=== PATIENT | female | born 1985 | race Caucasian/White ===

== ENCOUNTER 2018-05-12 06:37 | Inpatient (IN) | payer OTHER ==
[2018-05-12 06:52] VITALS: BMI 26.6
--- NOTE | 2018-05-12 07:32 | PDOC ---
Attending Attestation - HPI HPI: The patient is a 32 year old Hungarian-speaking female with PMHx of 6 weeks 3 days intrauterine as [facility] Patient states that she was seen on Sunday at [facility] for vaginal bleeding. The US results show that a single intrauterine gestation with estimated age of 6 weeks and 1 day without evidence of cardiac activity. She notes that she began experiencing cramping today and was passing a significant amount of large blood clots. OBGyn: Katyt Velez 05/12/18 09:50 - Physicial Exam PE: GENERAL: Awake, alert, and fully oriented, in no acute distress. HEAD: No signs of trauma EYES: PERRLA, EOMI, sclera anicteric, conjunctiva clear ENT: Auricles normal inspection, hearing grossly normal, nares patent, oropharynx clear without exudates. Moist mucosa NECK: Normal ROM, supple, no lymphadenopathy, JVD, or masses LUNGS: Breath sounds equal, clear to auscultation bilaterally. No wheezes, and no crackles HEART: Regular rate and rhythm, normal S1 and S2, no murmurs, rubs or gallops ABDOMEN: Soft, nontender, normoactive bowel sounds. No guarding, no rebound. No masses EXTREMITIES: Normal range of motion, no edema. No clubbing or cyanosis. No cords, erythema, or tenderness NEUROLOGICAL: Cranial nerves II through XII grossly intact. Normal speech, normal gait SKIN: Warm, Dry, normal turgor, no rashes or lesions noted. 05/12/18 09:54 <Mami Colindres - Last Filed: 05/12/18 09:50> - Resident Resident Name: Robson Valentin - Physicial Exam PE: 05/16/18 19:14 pelvic exam: open os, passing large clots as per resident exam. - Medical Decision Making 05/16/18 19:15 Pt presents to the ED complaining of heavy vaginal bleeding. Had US at outside institution two days ago that showed IUP with no heart beat. Open os on exam here today. Case discussed with Dr. Hennessy, who has come to the ED to evaluate the patient and feels that she has an incomplete and should go to the OR for D and C. <Araseli Donaldson - Last Filed: 05/16/18 19:17>
--- NOTE | 2018-05-12 08:09 | PDOC ---
History of Present Illness <Araseli Donaldson - Last Filed: 05/12/18 11:32> - General History Source: Patient, Spouse Exam Limitations: Language Barrier (Pt primarily Bangladeshi speaking. is fluent in Cypriot and translated for pt during encounter.) - History of Present Illness Initial Comments: 05/12/18 07:52 32 y/o primigravida female at estimated 6 wks 3 days gestation by transvaginal u /s (obtained 10 May 2018) presenting to [facility] ED complaining of vaginal bleeding and cramping since Sunday. The bleeding and cramping have become worse in the past 24hrs. Pt estimates approx. 3-4 pads worth of blood. Painful cramping occurring in LL and RL abdomen with radiation to the back. The pt was evaluated for similar symptoms on Sunday (10 May 2018) at [facility] ED, where an IUP was visualized on u/s. Pt was discharged home with [facility] follow up scheduled for Sunday (13 May 2018) with Katty Velez CNM. Pt's works [employer] and was not present for ED visit on Sunday. No systemic symptoms on ROS. No history of STDs. No familial history of bleeding disorders or spontaneous abortions. Last vaginal intercourse was last Sunday. <Robson Valentin - Last Filed: 05/12/18 14:31> - General Chief Complaint: Vaginal Bleeding Stated Complaint: VAG BLEED 2 MONTHS Time Seen by Provider: 05/12/18 07:30 Past History <Araseli Donaldson - Last Filed: 05/12/18 11:32> - Past Medical History COPD: No - Reproductive History Is Patient Now?: Yes (#): 1 Para: 0 - Immunization History Immunization Up to Date: Yes - Suicide/Smoking/Psychosocial Hx Smoking History: Never smoked Have you smoked in the past 12 months: No Information on smoking cessation initiated: No Hx Alcohol Use: No Drug/Substance Use Hx: No <Robson Valentin - Last Filed: 05/12/18 14:31> - Past Medical History Allergies/Adverse Reactions: Allergies Allergy/AdvReac Type Severity Reaction Status Date / Time No Known Allergies Allergy Verified 05/12/18 06:48 Home Medications: Ambulatory Orders NK [No Known Home Medication] 05/12/18 Review of Systems - Review of Systems Is the patient limited Cypriot proficient: Yes Constitutional: No: Chills, Diaphoresis, Fever, Malaise, Weakness HEENTM: No: Blurred Vision, Recent change in vision, Double Vision Respiratory: No: Shortness of Breath Cardiac (ROS): No: Chest Pain, Lightheadedness, Palpitations, Syncope, Chest Tightness ABD/GI: Yes: Abdominal cramping. No: Constipated, Diarrhea, Vomiting : Yes: Other (Vagianal Bleeding). No: Burning, Dysuria Musculoskeletal: No: Muscle Pain, Muscle Weakness Neurological: No: Headache, Weakness, Unsteady Gait Hematologic/Lymphatic: Yes: See HPI <Robson Valentin - Last Filed: 05/12/18 14:31> *Physical Exam - Vital Signs Last Vital Signs Temp Pulse Resp BP Pulse Ox 97.5 F L 72 20 111/69 100 05/12/18 06:49 05/12/18 10:28 05/12/18 06:49 05/12/18 10:28 05/12/18 06:49 <Araseli Donaldson - Last Filed: 05/12/18 11:32> - Vital Signs Last Vital Signs Temp Pulse Resp BP Pulse Ox 97.5 F L 82 20 111/66 100 05/12/18 06:49 05/12/18 06:49 05/12/18 06:49 05/12/18 06:49 05/12/18 06:49 - Physical Exam Comments: 05/12/18 08:42 Adult female in no acute distress. Average body habitus. Answered all questions appropriately and with complete thought. Dressed appropriately. HEENT: positive: Normal Voice Respiratory/Chest: positive: Lungs Clear, Normal Breath Sounds. negative: Chest Tender, Respiratory Distress, Accessory Muscle Use Cardiovascular: positive: Regular Rhythm, Regular Rate, S1, S2. negative: Murmur, Diastolic Murmur, Systolic Murmur, Gallop/S3, Gallop/S4 Female Pelvic Exam: positive: vaginal bleeding, other (Bleeding and clotted material noted in OS. OS found to be open on bimanual exam.). negative: cervical os closed Extremity: positive: Normal Capillary Refill, Normal Inspection, Normal Range of Motion. negative: Tender, Pedal Edema, Swelling, Calf Tenderness <Robson Valentin - Last Filed: 05/12/18 14:31> ED Treatment Course - LABORATORY CBC & Chemistry Diagram: 05/12/18 08:36 - ADDITIONAL ORDERS Additional order review: Laboratory Results 05/12/18 05/12/18 05/12/18 08:43 08:43 08:36 Beta HCG, Quant 2890.6 Urine Color Yellow Urine Appearance Slcloudy Urine pH 5.0 Ur Specific [place] 1.027 Urine Protein 1+ H Urine Glucose (UA) Negative Urine Ketones Negative Urine Blood 3+ H Urine Nitrite Negative Urine Bilirubin Negative Urine Urobilinogen Negative Ur Leukocyte Esterase Trace Urine WBC (Auto) 100 Urine RBC (Auto) 90 Ur Epithelial Cells Many Urine Bacteria Many Urine Mucus Many Blood Type A POSITIVE Antibody Screen Negative 05/12/18 08:36 RBC 4.28 MCV 88.1 MCHC 34.4 RDW 12.9 MPV 8.3 Neutrophils % 75.9 Lymphocytes % 18.3 Monocytes % 4.9 Eosinophils % 0.5 Basophils % 0.4 - Medications Given in the ED: ED Medications Discontinued Medications Generic Name Dose Route Start Last Admin Trade Name Jerrell PRN Reason Stop Dose Admin Acetaminophen 650 mg 05/12/18 08:35 05/12/18 09:35 Tylenol Oral Solution - PO 05/12/18 08:36 Not Given ONCE ONE Acetaminophen 650 mg 05/12/18 08:40 05/12/18 08:40 Tylenol - PO 05/12/18 08:41 650 mg ONCE ONE Administration <Araseli Donaldson - Last Filed: 05/12/18 11:32> - LABORATORY CBC & Chemistry Diagram: 05/12/18 08:36 <Robson Valentin - Last Filed: 05/12/18 14:31> Medical Decision Making - Medical Decision Making 05/12/18 08:45 32 year old primigravida female at 6w3d gestation by u/s presents with vaginal bleeding and lower abdominal cramping since last Sunday, worse in the past 24hrs. Vitals unremarkable for tachycardia or hypotension. Bleeding noted on speculum exam with open os noted on bimanual. Low suspicion for ectopic given U/ S two days ago suggestive for IUP. Differential to include spontaneous or threatened . Physiologic bleeding of considered but unlikely given open OS. Will obtain CBC, type and screen, UA, and repeat transvaginal U/S. 05/12/18 09:16 CBC unremarkable for signs of anemia. UA positive for blood and protein likely secondary to vaginal bleeding; not suggestive for infection. 05/12/18 10:05 No pole appreciated on U/S; findings suggestive for spontaneous . Rh+ so RhoGam not indicated. Concern remains for continued heavy bleeding given open OS. 05/12/18 10:07 Called to bedside. Pt continues to bleed heavily and passed a large 5-8cm 05/12/18 11:54 Dr. Hennessy of [facility] service evaluated pt and admitted to her service for urgent OR procedure. <Robson Valentin - Last Filed: 05/12/18 14:31> *DC/Admit/Observation/Transfer - Discharge Dispostion Decision to Admit order: Yes <Araseli Donaldson - Last Filed: 05/12/18 11:32> <Robson Valentin - Last Filed: 05/12/18 14:31> Diagnosis at time of Disposition: Incomplete with delayed or excessive hemorrhage - Discharge Dispostion Condition at time of disposition: Good
[2018-05-12] MEDS ORDERED: ACETAMINOPHEN 650 MG/20.3 ML ORAL SOLUTION (CUPS) PO ONE (08:35)
[2018-05-12] MEDS ORDERED: ACETAMINOPHEN 325 MG TABLET (FP) ONE (08:36)
[2018-05-12] MEDS ORDERED: ACETAMINOPHEN 325 MG TABLET (FP) PO ONE (08:40)
[2018-05-12 08:43] LABS: BASO % 0.4 % (0-2.0); EOS % 0.5 % (0-4.5); HEMATOCRIT 37.7 % (32.4-45.2); LYMPH % 18.3 % (8-40); MCH 30.3 pg (25.7-33.7); MCHC 34.4 g/dl (32.0-36.0); MEAN CELL VOLUME 88.1 fl (80-96); MEAN PLT VOLUME 8.3 fl (7.5-11.1); MONO % 4.9 % (3.8-10.2); NEUT % 75.9 % (42.8-82.8); PLATELET COUNT 241 K/MM3 (134-434); RBC 4.28 M/mm3 (3.60-5.2); RDW 12.9 % (11.6-15.6); WHITE BLOOD COUNT 11.5 K/mm3 (4.0-10.0)
[2018-05-12 08:56] LABS: URINE APPEARANCE SLCLOUDY; URINE BILIRUBIN NEGATIVE (<2.0 mg/dL); URINE COLOR YELLOW; URINE GLUCOSE (UA) NEGATIVE (NEGATIVE); URINE KETONE NEGATIVE (NEGATIVE); URINE LEUK ESTERASE TRACE (NEGATIVE); URINE NITRITE NEGATIVE (NEGATIVE); URINE UROBILINOGEN NEGATIVE mg/dL (0.2-1.0)
[2018-05-12 08:57] LABS: URINE PROTEIN 1+ (NEGATIVE)
[2018-05-12 10:30] LABS: EPI CELLS MANY /HPF (FEW); URINE BACTERIA MANY /hpf (NONE SEEN); URINE MUCUS MANY
--- NOTE | 2018-05-12 11:24 | CON.OBG ---
Consult Consult Specialty:: SHIPFITTER Referred by:: Dr. Donaldson - History of Present Illness Chief Complaint: Vaginal bleeding History of Present Illness: 32 yo , LMP 03/14/18, presents to ER c/o pelvic pain associated with heavy vaginal bleeding. In ER she passed large clots. Sonogram failed to show any gestational sac as previously seen elsewhere. Patient was evaluated, there was significant bleeding and cervical os was opened. - History Source History Provided By: Family Member Limitations to Obtaining History: Language Barrier - Past Medical History ...LMP: 03/14/18 ...: Yes ...: 1 ...Para: 0 - Past Surgical History Past Surgical History: Yes: None - Alcohol/Substance Use Hx Alcohol Use: No - Smoking History Smoking history: Never smoked Have you smoked in the past 12 months: No - Social History Usual Living Arrangement: With Significant Other History of Recent Travel: No Home Medications - Allergies Allergies/Adverse Reactions: Allergies Allergy/AdvReac Type Severity Reaction Status Date / Time No Known Allergies Allergy Verified 05/12/18 06:48 - Home Medications Home Medications: Ambulatory Orders NK [No Known Home Medication] 05/12/18 Family Disease History - Family Disease History Family History: Unremarkable Review of Systems - Review of Systems Constitutional: reports: No Symptoms Eyes: reports: No Symptoms HENT: reports: No Symptoms Neck: reports: No Symptoms Cardiovascular: reports: No Symptoms Respiratory: reports: No Symptoms Gastrointestinal: reports: No Symptoms Genitourinary: reports: Pain, Vaginal Bleeding Musculoskeletal: reports: No Symptoms Integumentary: reports: No Symptoms Neurological: reports: No Symptoms Hematology/Lymphatic: reports: No Symptoms Psychiatric: reports: No Symptoms Pain Intensity: 4 Physical Exam-DIRECTOR CLINICAL APPLICATIONS Vital Signs: Vital Signs Temperature 97.5 F L 05/12/18 06:49 Pulse Rate 72 05/12/18 10:28 Respiratory Rate 20 05/12/18 06:49 Blood Pressure 111/69 05/12/18 10:28 O2 Sat by Pulse Oximetry (%) 100 05/12/18 06:49 Constitutional: Yes: No Distress Eyes: Yes: Conjunctiva Clear HENT: Yes: Atraumatic Neck: Yes: Supple Cardiovascular: Yes: Regular Rate and Rhythm Respiratory: Yes: Regular Gastrointestinal: Yes: Normal Bowel Sounds Vaginal Exam: Yes: Bleeding Cervix: Yes: Bleeding, Other (Open os) Uterus: Yes: Enlarged Neurological: Yes: Alert, Oriented Psychiatric: Yes: Alert, Oriented Labs: CBC, BMP 05/12/18 08:36 Problem List - Problems (1) Vaginal bleeding before 22 weeks gestation Code(s): O20.9 - HEMORRHAGE IN EARLY , UNSPECIFIED (2) Incomplete with delayed or excessive hemorrhage Code(s): O03.1 - DELAYED OR EXCESSIVE HEMOR FOLLOWING INCMPL SPON Assessment/Plan Incomplete with excessive hemorrhage Pre op for suction D&C Consent signed Anesthesia to see patient
[2018-05-12] MEDS ORDERED: ONDANSETRON 4 MG/2 ML VIAL IVPUSH ONE (11:35)
[2018-05-12] MEDS ORDERED: fentaNYL CITRATE 250 MCG/5 ML VIAL IVPUSH ONE (11:47)
[2018-05-12] MEDS ORDERED: ONDANSETRON 4 MG/2 ML VIAL ONE (11:50)
[2018-05-12] MEDS ORDERED: PROPOFOL 20 ML ONE ×2 (13:18)
[2018-05-12] MEDS ORDERED: ceFAZolin SODIUM 1 GM VIAL ONE (13:32)
[2018-05-12] MEDS ORDERED: ceFAZolin SODIUM 1 GM VIAL IVPB ONE (13:33)
[2018-05-12] MEDS ORDERED: KETOROLAC TROMETHAMINE 30 MG/1 ML VIAL ONE (13:38)
--- NOTE | 2018-05-12 13:50 | OP ---
Operative Note - Note: Operative Date: 05/12/18 Pre-Operative Diagnosis: Incomplete Operation: Suction D&C Findings: Large clots at the cervical os and vagina Post-Operative Diagnosis: Same as Pre-op Surgeon: Denise Hennessy Anesthesia: General Specimens Removed: Product of conception Estimated Blood Loss (mls): 100 Operative Report Dictated: Yes
[2018-05-12] MEDS ORDERED: PROMETHAZINE HCL 25 MG/1 ML VIAL IVPB PRN (14:01)
[2018-05-12] MEDS ORDERED: ACETAMINOPHEN 1000 MG/100 ML VIAL (NON FORMULARY) IVPB ONE (14:03)
[2018-05-12] MEDS ORDERED: LACTATED RINGERS SOLUTION 1,000 ML IV SCH (14:15)
[2018-05-12 14:28] LABS: HEMATOCRIT 27.9 % (32.4-45.2); HEMOGLOBIN 9.6 GM/dL (10.7-15.3); MCH 30.5 pg (25.7-33.7); MCHC 34.5 g/dl (32.0-36.0); MEAN CELL VOLUME 88.5 fl (80-96); MEAN PLT VOLUME 7.9 fl (7.5-11.1); PLATELET COUNT 211 K/MM3 (134-434); RBC 3.15 M/mm3 (3.60-5.2); RDW 12.7 % (11.6-15.6); WHITE BLOOD COUNT 12.6 K/mm3 (4.0-10.0)
[2018-05-12] MEDS ORDERED: ACETAMINOPHEN INJECTION 100 ML IVPB ONE (14:31)
--- NOTE | 2018-05-12 14:36 | OP ---
DATE OF OPERATION: 05/12/2018 PREOPERATIVE DIAGNOSIS: Incomplete . POSTOPERATIVE DIAGNOSIS: incomplete . PROCEDURE: Suction dilatation and curettage. SURGEON: Susie Hennessy MD ANESTHESIA: General. COMPLICATIONS: None. ESTIMATED BLOOD LOSS: 100 mL. PROCEDURE: The patient was taken to the operating room where general anesthesia was administered. The patient was then placed in lithotomy position. She was then prepped and draped in proper sterile fashion. A weighted speculum was placed in the vagina. The anterior lip of the cervix was grasped with a single-toothed tenaculum. Then the 10-mm suction curette was then gently introduced into the uterine cavity. The suction curette was then rotated to clear the uterus of all products of conception. A sharp curettage was then performed then the curette was then reintroduced to clear the uterus of all remaining products of conception. When finished instruments were removed and the patient was taken out of the lithotomy position. She was taken to PACU in stable condition. PATHOLOGY: Products of conception. DARRIN HENNESSY M.D. [id number]
[2018-05-12 18:22] VITALS: BP 108/54; PULSE 84; TEMP 98.9
--- NOTE | 2018-05-15 10:12 | PATH ---
Surgical Pathology Report Patient Name: LAYNE SILVER Med. Rec. #: [id number] /Age/Gender: 1985 (Age: 32) / F Account: [id number] Location: [facility] OBS/DIRECTOR OF SECURITIES AND REAL ESTATE Taken: 05/12/2018 Received: 05/13/2018 Reported: 05/15/2018 Physicians: Denise Hennessy M.D. Specimen(s) Received PRODUCTS OF CONCEPTION Clinical History Incomplete Final Diagnosis PRODUCTS OF CONCEPTION, DILATION AND CURETTAGE: IMMATURE CHORIONIC VILLI AND DECIDUA CONSISTENT WITH PRODUCTS OF CONCEPTION. Electronically Signed Alayna Peralta M.D. Gross Description Received in formalin, labeled "uterine contents," is a 10 x 10 x 2 cm. aggregate of cortez-red soft tissue fragments. Tissue suggestive of villous tissue is identified. No somatic tissue is identified. A pharmacy sales representative portion is submitted in one cassette. MLSZ/05/13/2018 santank/05/13/2018
== END 2018-05-12 18:20 | disposition home or self-care (01) | DRG 544 ==
LOC: JER 06:37 → JERBED 11:32 → UNDOADMIN 11:32 → JDEL 12:04 → J3W 15:50
PROVIDERS: ADMIT Obstetrics & Gynecology; ATTEND Obstetrics & Gynecology
PROC: 10D17ZZ Extraction of Products of Conception, Retained, Via Natural or Artificial Opening (ICD-10-PCS; principal; 2018-05-12 13:00)
DX: O03.1 Delayed or excessive hemorrhage following incomplete spontaneous abortion (principal)
CPT/HCPCS: 36415; 76801-TC; 81003; 81015; 84702; 85025; 85027; 86850; 86900; 86901; 88305-TC; 94760; 99283-25; J0131

== ENCOUNTER 2021-11-14 06:30 | Inpatient (IN) | payer OTHER ==
[2021-11-14] MEDS: ELECTROLYTE-148 SOLN 1,000 ML IV SCH (07:00)
[2021-11-14] MEDS ORDERED: CITRIC ACID/SODIUM CITRATE 30 ML UNIT-DOSE CUP PO ONE (07:49)
[2021-11-14] MEDS ORDERED: OXYTOCIN 20 UNITS in 0.9% NS 20 UNIT/1,000 ML INFUS.BAG IV ONE ×2 (08:05→11:10)
[2021-11-14] MEDS ORDERED: morphine SULFATE/PF 1 MG/2 ML (2cc Syringe - QUVA) ONE (08:06)
[2021-11-14] MEDS ORDERED: ePHEDrine SULFATE 50 MG/1 ML AMPULE ONE (08:06)
[2021-11-14] MEDS ORDERED: PHENYLEPHRINE HCL 10 MG/1 ML SINGLE DOSE VIAL ONE (08:08)
[2021-11-14] MEDS ORDERED: IBUPROFEN 800 MG/8 ML IJ IVPB PRN (08:15)
[2021-11-14] MEDS ORDERED: ceFAZolin SODIUM 1 GM VIAL ONE (08:25)
[2021-11-14] MEDS: OXYTOCIN 20 UNITS in 0.9% NS 20 UNIT/1,000 ML INFUS.BAG IV SCH (08:39)
[2021-11-14] MEDS ORDERED: ONDANSETRON 4 MG/2 ML VIAL ONE (08:40)
[2021-11-14] MEDS ORDERED: METHYLERGONOVINE MALEATE 0.2 MG/1 ML AMP IM ONE (09:07)
[2021-11-14 10:11] VITALS: BMI 34.3
[2021-11-14] MEDS ORDERED: ONDANSETRON 4 MG/2 ML VIAL IVPUSH PRN (11:38)
[2021-11-14] MEDS ORDERED: oxyCODONE HCL 5 MG TABLET PO PRN (20:15)
[2021-11-15] MEDS ORDERED: BISACODYL 10 MG SUPP.RECT RC PRN (08:15)
[2021-11-15 08:50] LABS: BASO % 0.5 % (0-2.0); EOS % 0.3 % (0-4.5); HEMATOCRIT 28.3 % (32.4-45.2); HEMOGLOBIN 9.8 GM/dL (10.7-15.3); LYMPH % 9.1 % (8-40); MCH 30.7 pg (25.7-33.7); MCHC 34.8 g/dl (32.0-36.0); MEAN CELL VOLUME 88.2 fl (80-96); MEAN PLT VOLUME 7.7 fl (7.5-11.1); NEUT % 83.1 % (42.8-82.8); PLATELET COUNT 248 10^3/uL (134-434); RDW 14.3 % (11.6-15.6); WHITE BLOOD COUNT 13.6 K/mm3 (4.0-10.0)
[2021-11-15] MEDS: IBUPROFEN 600 MG TABLET (FP) PO PRN (12:14)
[2021-11-15] MEDS: SIMETHICONE 80 MG TAB.CHEW (FP) PO PRN ×2 (12:14→19:42)
[2021-11-15] MEDS: ACETAMINOPHEN 325 MG TABLET (FP) PO PRN ×2 (14:49→20:46)
[2021-11-16] MEDS: ELECTROLYTE-148 SOLN 1,000 ML IV SCH (02:44)
[2021-11-16] MEDS: IBUPROFEN 600 MG TABLET (FP) PO PRN (02:47)
[2021-11-16] MEDS: OXYTOCIN 20 UNITS in 0.9% NS 20 UNIT/1,000 ML INFUS.BAG IV SCH (02:49)
[2021-11-16] MEDS: ACETAMINOPHEN 325 MG TABLET (FP) PO PRN (09:03)
[2021-11-16] MEDS: SIMETHICONE 80 MG TAB.CHEW (FP) PO PRN (09:03)
[2021-11-17 06:51] LABS: BASO % 0.4 % (0-2.0); EOS % 2.2 % (0-4.5); HEMATOCRIT 27.2 % (32.4-45.2); HEMOGLOBIN 9.4 GM/dL (10.7-15.3); LYMPH % 18.6 % (8-40); MCH 30.5 pg (25.7-33.7); MCHC 34.7 g/dl (32.0-36.0); MEAN CELL VOLUME 87.9 fl (80-96); MEAN PLT VOLUME 7.3 fl (7.5-11.1); MONO % 7.5 % (3.8-10.2); NEUT % 71.3 % (42.8-82.8); PLATELET COUNT 282 10^3/uL (134-434); RDW 14.6 % (11.6-15.6); WHITE BLOOD COUNT 8.6 K/mm3 (4.0-10.0)
[2021-11-17 10:50] VITALS: BP 104/65; PULSE 99; TEMP 98.5
== END 2021-11-17 12:25 | disposition home or self-care (01) | DRG 540 ==
LOC: JLDR 06:30 → J3W 11:35
PROVIDERS: ADMIT Student in an Organized Health Care Education/Training Program; ATTEND Student in an Organized Health Care Education/Training Program
PROC: 10D00Z1 Extraction of Products of Conception, Low, Open Approach (ICD-10-PCS; principal; 2021-11-14)
DX: O44.43 Low lying placenta NOS or without hemorrhage, third trimester (principal); Z3A.38 38 weeks gestation of pregnancy; Z37.0 Single live birth
CPT/HCPCS: 36415; 80053; 81003; 85025; 86780; 86850; 86900; 86901; 88307-TC; C9803-CS; U0003; U0005